=== PATIENT | male | born 1960 | race Caucasian/White ===

== ENCOUNTER 2022-10-12 14:30 | Outpatient (RCR) | payer OTHER, SELFPAY | END 2023-03-03 23:59 | disposition home or self-care (01) | PROVIDERS: PCP Internal Medicine; Visit Provider Internal Medicine | DX: M75.50 Bursitis of unspecified shoulder (principal); Z51.89 Encounter for other specified aftercare | CPT/HCPCS: 97110; 97140; 97162 ==

== ENCOUNTER 2024-01-23 07:43 | Outpatient (CLI) | payer OTHER, SELFPAY ==
--- OUTSIDE RECORDS SUMMARY | 2024-01-25 13:53 | XMS_ITS | Clinical Summary ---
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 9 10/11/2018 Active simvastatin (ZOCOR) 10 mg tablet Take 10 mg by mouth at bedtime. 2 12/04/2018 Active insulin lispro (HUMALOG KWIKPEN; ADMELOG SOLOSTAR) 100 unit/mL inpn pen Three Times Daily With Meals 08/28/2018 Active BASAGLAR KWIKPEN U-100 INSULIN 100 unit/mL (3 mL) pen INJECT 15 UNITS SUBCUTANEOUSLY TWICE DAILY 1 12/04/2018 Active ACCU-CHEK LENNIE PLUS TEST STRP strip TEST 5 TIMES DAILY 1 11/03/2018 Active aspirin (ECOTRIN) 81 mg enteric coated tablet Daily Active Active Problems Problem Noted Date Diagnosed Date Elevated PSA 12/18/2018 Social History Tobacco Use Types Packs/Day Years Used Date Smoking Tobacco: Never Smokeless Tobacco: Never Tobacco Cessation:Counseling Given: Yes Alcohol Use Standard Drinks/Week Comments Yes 0 (1 standard drink = 0.6 oz pur e alcohol) Sex and Gender Information Value Date Recorded Sex Assigned at Not on file Gender Identity Not on file Sexual Orientation Not on file Obstetrics History Last Filed Vital Signs Vital Sign Reading Time Taken Comments Blood Pressure 168/93 12/18/2018 10:11 AM CDT BP Recheck Pulse 68 12/18/2018 9:10 AM CDT Temperature 36.7 ??C (98 ??F) 12/18/2018 9:1 0 AM CDT Respiratory Rate 18 12/18/2018 9:10 AM CDT Oxygen Saturation 96% 12/18/2018 9:1 0 AM CDT Inhaled Oxygen Concentration - - Weight 77.1 kg (170 lb) 12/18/2018 9:10 AM CDT Pt weighed with shoes on. Height - - Body Mass Index - - Plan of Treatment Health Maintenance Due Date Last Done Comments Tdap 1972 Depression screening for age 12+ 1973 HIV for age 15-65 1976 BMI (ht and wt on same day) for age 18+ 1979 Hepatitis C screening for ag e 18-79 1979 Tetanus booster 1981 Colonoscopy through age 75 2006 Lipids for age 45-75 2006 Zoster (shingles) series for age 50+ (1 of 2) 2011 COVID-19 vaccine series ( - 2022-24 season) 2023 Influenza for age 50-64 04/15/2024 Pneumococcal series for age 6-64 Aged Out No longer eligible based on patient's age to complete this topic Care Teams Coil Rewind Machine Operator Relationship Specialty Start Date End Date Teodoro Ashton MD [address] [place] [address] PCP - General Internal Medicine 10/12/18
== END 2024-01-23 07:44 | disposition home or self-care (01) ==
LOC: NFLDREF 01-25 13:50
PROVIDERS: PCP Internal Medicine; Referring Provider Internal Medicine; Visit Provider Internal Medicine
DX: E10.9 Type 1 diabetes mellitus without complications (principal); I10 Essential (primary) hypertension; E78.5 Hyperlipidemia, unspecified; Z79.4 Long term (current) use of insulin
CPT/HCPCS: 80053; 80061; 82043; 82570

== ENCOUNTER 2024-07-23 07:25 | Outpatient (CLI) | payer OTHER, SELFPAY | END 2024-07-23 07:26 | disposition home or self-care (01) | LOC: NFLDREF 07-26 05:14 | PROVIDERS: PCP Internal Medicine; Referring Provider Internal Medicine; Visit Provider Internal Medicine | DX: E10.65 Type 1 diabetes mellitus with hyperglycemia (principal); I10 Essential (primary) hypertension; R97.20 Elevated prostate specific antigen [PSA]; Z12.5 Encounter for screening for malignant neoplasm of prostate; Z13.220 Encounter for screening for lipoid disorders | CPT/HCPCS: 80053; 80061; 82043; 82570; 84153 ==

== ENCOUNTER 2024-10-01 07:30 | Outpatient (CLI) | payer BC, SELFPAY ==
--- NOTE | 2024-10-01 08:48 | P.ANES_ITS ---
Anesthesia Charges Start Date/Time Anesthesia Start Date: 10/01/24 Anesthesia Start Time: 08:27 Stop Date/Time Anesthesia Stop Date: 10/01/24 Anesthesia Stop Time: 08:47 Coding CPT Codes CPT Codes: YURY LWR INTST NDSC NOS - [id number] ([id number]) P2 - PATIENT W/MILD SYST DISEASE, QK - PAYABLE MANAGER 2-4 CNCRNT ANES PROC, QX - FINANCIAL REPORTING ANALYST SVC W/ MD MED DIRECTION
--- NOTE | 2024-10-01 08:48 | W.ANESCHARGE ---
Anesthesia Charges Start Date/Time Anesthesia Start Date: 10/01/24 Anesthesia Start Time: 08:27 Stop Date/Time Anesthesia Stop Date: 10/01/24 Anesthesia Stop Time: 08:47 Coding CPT Codes CPT Codes: YURY LWR INTST NDSC NOS - [id number] ([id number]) P2 - PATIENT W/MILD SYST DISEASE, QK - CLEANING AND WASHING EQUIPMENT OPERATOR 2-4 CNCRNT ANES PROC, QX - RECREATION OFFICER SVC W/ MD MED DIRECTION
--- NOTE | 2024-10-01 08:49 | P.ANES_ITS ---
Anesthesia Charges Start Date/Time Anesthesia Start Date: 10/01/24 Anesthesia Start Time: 08:27 Stop Date/Time Anesthesia Stop Date: 10/01/24 Anesthesia Stop Time: 08:47 Coding CPT Codes CPT Codes: YURY LWLaine INTST NDSC NOS - [id number] ([id number]) P2 - PATIENT W/MILD SYST DISEASE, QX - SECURITY SCREENER SVC W/ MD MED DIRECTION, QK - REFERRAL SPECIALIST 2-4 CNCRNT ANEStephanie PROC
--- NOTE | 2024-10-01 08:49 | W.ANESCHARGE ---
Anesthesia Charges Start Date/Time Anesthesia Start Date: 10/01/24 Anesthesia Start Time: 08:27 Stop Date/Time Anesthesia Stop Date: 10/01/24 Anesthesia Stop Time: 08:47 Coding CPT Codes CPT Codes: YURY LWLaine INTST NDSC NOS - [id number] ([id number]) P2 - PATIENT W/MILD SYST DISEASE, QX - AVIONICS ELECTRONICS TECHNICIAN SVC W/ MD MED DIRECTION, QK - DRYING MACHINE BACK TENDER 2-4 CNCRNT ANEStephanie PROC
== END 2024-10-01 07:31 | disposition home or self-care (01) ==
PROVIDERS: PCP Internal Medicine; Visit Provider Internal Medicine
DX: Z12.11 Encounter for screening for malignant neoplasm of colon (principal); D12.5 Benign neoplasm of sigmoid colon; K57.30 Diverticulosis of large intestine without perforation or abscess without bleeding; Z80.0 Family history of malignant neoplasm of digestive organs
CPT/HCPCS: 00811; 45380; 88305; J2704

== ENCOUNTER 2025-02-26 08:16 | Outpatient (CLI) | payer BC, SELFPAY | END 2025-02-26 08:17 | disposition home or self-care (01) | LOC: NFLDREF 02-28 12:51 | PROVIDERS: PCP Internal Medicine; Referring Provider Internal Medicine; Visit Provider Internal Medicine | DX: R97.20 Elevated prostate specific antigen [PSA] (principal); I10 Essential (primary) hypertension; E10.9 Type 1 diabetes mellitus without complications; Z12.5 Encounter for screening for malignant neoplasm of prostate | CPT/HCPCS: 80053; 80061; 82043; 82570; 84153 ==